=== PATIENT | female | born 1990 | race Two or more races ===

== ENCOUNTER 2016-11-02 21:43 | Emergency (ER) | payer MEDICAID, OTHER ==
[~2016-11-02] VITALS: Ht 170.2 cm; Wt 79.4 kg
[~2016-11-02 21:43] MED LIST: ACETAMINOP500 MG/51 ORAL; DIFLUCAN100 MG ORAL; MACROBID100 MG ORAL; NKM; ONDANSETRON ODT4 MG ORAL; PRENATAL DHA+C1 EACH PO; ZOFRAN ODT4 MG ORAL
[2016-11-02] MEDS ORDERED: UNOBMED (22:01)
[2016-11-02 22:04] VITALS: BP 96/53
[2016-11-02] MEDS: D5NS 1,000 ML IV SCH ×2 (22:17→23:18)
[2016-11-02 22:30] LABS: BASOPHILS % (AUTO) 0.7 % (0.0-2.0); EOSINOPHILS % (AUTO) 0.1 % (0.0-3.0); LYMPHOCYTES % (AUTO) 16.2 % (20.0-45.0); MEAN CORPUSCULAR HEMOGLOBIN 31.7 PG (27.0-31.0); MEAN CORPUSCULAR HGB CONC 35.2 G/DL (32.0-36.0); MEAN CORPUSCULAR VOLUME 90 FL (80-99); MEAN PLATELET VOLUME 10.3 FL (6.5-10.1); MONOCYTES % (AUTO) 5.7 % (1.0-10.0); NEUTROPHILS % (AUTO) 77.3 % (45.0-75.0); PLATELET COUNT 247 K/UL (150-450); RED BLOOD COUNT 4.22 M/UL (4.20-5.40); RED CELL DISTRIBUTION WIDTH 11.1 % (11.6-14.8); WHITE BLOOD COUNT 12.5 K/UL (4.8-10.8)
[2016-11-02 22:41] LABS: ANION GAP 15 (5-15); CALCIUM 9.9 mg/dL (8.6-10.2); CARBON DIOXIDE 24 mEQ/L (20-30); CHLORIDE 98 mEQ/L (98-107); CREATININE 0.6 mg/dL (0.5-0.9); GLOMERULAR FILTRATION RATE > 60 mL/min (>60); HEMOLYSIS 8; POTASSIUM 3.4 mEQ/L (3.4-4.9); SODIUM 137 mEQ/L (135-145)
[2016-11-02 23:00] VITALS: BP 117/70
[2016-11-02] MEDS ORDERED: D5NS 1,000 ML IV SCH (23:00)
[2016-11-03 00:08] LABS: APPEARANCE,URINE CLEAR; KETONES,URINE 4+ (NEGATIVE); LEUKOCYTE ESTERASE ,URINE NEGATIVE (NEGATIVE); NITRITE,URINE NEGATIVE (NEGATIVE); PH,URINE 7 (4.5-8.0); PROTEIN,URINE NEGATIVE (NEGATIVE); UROBILINOGEN,URINE 1 MG/DL (0.0-1.0)
[2016-11-03 00:09] LABS: BACTERIA,URINE FEW /HPF; RBC,URINE 0-2 /HPF (0 - 2); SQUAMOUS EPITHELIAL CELL,UR FEW /LPF (NONE/OCC); WBC,URINE 0-2 /HPF (0 - 2)
[2016-11-03] MEDS ORDERED: ZOFRAN ODT4 MG ORAL (00:10)
--- NOTE | 2016-11-03 00:11 | Emergency Room Report ---
History of Present Illness General Chief Complaint: Nausea Source: Patient Present Illness HPI A 26-year-old female 3 para 2, approximately 8 weeks . She's been having a lot of problem with vomiting and nauseous with this . This is similar to previous . Unable to keep anything down for the last 2 days. Been to ER before for this. Patient felt so pain also. No fever or chills. No bleeding. No urinary complaint. Allergies: Coded Allergies: No Known Allergies (Unverified , 11/02/16) Patient History Past Medical History: see triage record, old chart reviewed Past Surgical History: none Pertinent Family History: none Social History: Denies: smoking Last Menstrual Period: unk Now: Yes - 8 weeks : 3 Para: 2 Immunizations: other Reviewed Nursing Documentation: PMH: Agreed, PSxH: Agreed Nursing Documentation-PMH Past Medical History: No Stated History Hx Cardiac Problems: No Hx Cancer: No Hx Gastrointestinal Problems: No Hx Neurological Problems: No Review of Systems Eye: Denies: blurred vision, eye pain ENT: Denies: ear pain, nose congestion, throat swelling Respiratory: Denies: cough, shortness of breath Cardiovascular: Denies: chest pain, palpitations Gastrointestinal: Reports: nausea, vomiting, Denies: abdominal pain, diarrhea Musculoskeletal: Denies: back pain, joint pain Skin: Denies: rash Neurological: Denies: headache, numbness Endocrine: Denies: increased thirst, increased urine Hematologic/Lymphatic: Denies: easy bruising All Other Systems: negative except mentioned in HPI Physical Exam Vital Signs Date Time Temp Pulse Resp B/P Pulse Ox O2 Delivery O2 Flow Rate FiO2 11/02/16 21:56 97.9 80 16 96/53 99 Room Air vitals unremarkable Sp02 EP Interpretation: reviewed, normal General Appearance: well appearing, no apparent distress, alert Head: normocephalic, atraumatic Eyes: bilateral eye EOMI, bilateral eye PERRL ENT: hearing grossly normal, normal pharynx Neck: full range of motion, supple, no meningismus Respiratory: chest non-tender, lungs clear, normal breath sounds Cardiovascular #1: regular rate, rhythm, no murmur Gastrointestinal: normal bowel sounds, non tender, no mass, no organomegaly, no bruit, non-distended Musculoskeletal: back normal, gait/station normal, normal range of motion Psychiatric: mood/affect normal Skin: warm/dry Medical Decision Making Diagnostic Impression: Primary Impression: Hyperemesis gravidarum Additional Impression: dehydration ER Course Patient with hyperemesis gravidarum during first trimester. No evidence of infection. No evidence of ectopic. I did a bedside ultrasound and there was good movement and heart rate. We'll discharge home with Zofran. Lab Results Impression labs unremarkable Last Vital Signs Date Time Temp Pulse Resp B/P Pulse Ox O2 Delivery O2 Flow Rate FiO2 11/02/16 23:00 76 20 117/70 100 Room Air 11/02/16 22:04 97.9 Status: improved Disposition: HOME, SELF-CARE Condition: Stable Scripts Ondansetron Odt* (ZOFRAN ODT*) 4 Mg Tab.rapdis 4 MG ORAL Q6H Y for Nausea & Vomiting, #30 TAB 0 Refills Prov: MELANIE WESLEY M.D. 11/03/16 Referrals: [facility],REFERRING (PCP) Additional Instructions: Eat small frequent meals. Followup with your DIRECTOR OF EVENT MARKETING in 2-3 days. Return if symptom worsen. MELANIE WESLEY M.D. Nov 03, 2016 00:11
[2016-11-03] MEDS ORDERED: Acetaminophen 500mg (ES) tab ORAL ONE (00:15)
[2016-11-03 01:00] VITALS: BP 115/68
[2016-11-03 01:55] VITALS: BP 113/65
[2016-11-09] MEDS ORDERED: DICLEGIS DR 101 EACH PO (22:13)
== END 2016-11-03 01:55 | disposition home or self-care (01) ==
LOC: EMR 22:12
DX: O21.1 Hyperemesis gravidarum with metabolic disturbance (principal); Z3A.08 8 weeks gestation of pregnancy
CPT/HCPCS: 36415; 80048; 81001; 85025; 96360; 96361; 96374; 96375; 99284; J2405; 96365

== ENCOUNTER 2016-11-14 18:54 | Emergency (ER) | payer MEDICAID, OTHER ==
[~2016-11-14] VITALS: Ht 170.2 cm; Wt 77.1 kg
[~2016-11-14 18:54] MED LIST changes: +DICLEGIS DR 101 EACH PO; +UNOBMED
[2016-11-14] MEDS ORDERED: Tubing IV Cassette IV ONE ×2 (19:46→21:04)
[2016-11-14 20:01] LABS: BASOPHILS % (AUTO) 0.8 % (0.0-2.0); EOSINOPHILS % (AUTO) 0.2 % (0.0-3.0); LYMPHOCYTES % (AUTO) 21.6 % (20.0-45.0); MEAN CORPUSCULAR HEMOGLOBIN 32.3 PG (27.0-31.0); MEAN CORPUSCULAR VOLUME 90 FL (80-99); MEAN PLATELET VOLUME 10.7 FL (6.5-10.1); MONOCYTES % (AUTO) 7.9 % (1.0-10.0); NEUTROPHILS % (AUTO) 69.5 % (45.0-75.0); PLATELET COUNT 212 K/UL (150-450); RED BLOOD COUNT 4.24 M/UL (4.20-5.40); RED CELL DISTRIBUTION WIDTH 11.9 % (11.6-14.8); WHITE BLOOD COUNT 8.5 K/UL (4.8-10.8)
[2016-11-14 20:25] VITALS: BP 102/54
[2016-11-14 20:32] LABS: ALANINE AMINOTRANSFERASE 20 U/L (3-33); ALBUMIN/GLOBULIN RATIO 1.2 (1.0-2.7); ANION GAP 16 (5-15); ASPARTATE AMINO TRANSFERASE 24 U/L (5-40); CALCIUM 9.7 mg/dL (8.6-10.2); CARBON DIOXIDE 22 mEQ/L (20-30); CHLORIDE 96 mEQ/L (98-107); CREATININE 0.6 mg/dL (0.5-0.9); GLOMERULAR FILTRATION RATE > 60 mL/min (>60); HEMOLYSIS 119; LIPASE 36 U/L (< 60); POTASSIUM 4.3 mEQ/L (3.4-4.9); SODIUM 134 mEQ/L (135-145); TOTAL PROTEIN 7.8 g/dL (6.6-8.7)
[2016-11-14 21:56] VITALS: BP 117/51
[2016-11-14] MEDS ORDERED: ZOFRAN ODT4 MG ORAL (22:03)
[2016-11-14 22:14] VITALS: BP 117/51
--- NOTE | 2016-11-14 22:16 | Emergency Room Report ---
History of Present Illness General Chief Complaint: Complications Source: Patient Present Illness HPI 26-year-old female presents to ED for evaluation. Patient states shes having nausea and vomiting x1 days. Patient states she is approximately 9 weeks . States she was here a few days ago for similar presentation. Was discharged on medication for nausea but she states it is not helping. Denies any abdominal pain. Denies any vaginal bleeding or discharge. Denies dysuria or hematuria. No other aggravating relieving factors. Denies any other associated symptoms Allergies: Coded Allergies: No Known Allergies (Unverified , 11/09/16) Patient History Past Medical History: none Past Surgical History: none Pertinent Family History: none Social History: Denies: alcohol use, drug use, smoking Last Menstrual Period: 9 weeks Now: Yes Immunizations: UTD Reviewed Nursing Documentation: PMH: Agreed, PSxH: Agreed Nursing Documentation-PMH Past Medical History: No Stated History Hx Cardiac Problems: No Hx Cancer: No Hx Gastrointestinal Problems: No Hx Neurological Problems: No Review of Systems All Other Systems: negative except mentioned in HPI Physical Exam Vital Signs Date Time Temp Pulse Resp B/P Pulse Ox O2 Delivery O2 Flow Rate FiO2 11/14/16 19:24 97.9 111 17 88/51 98 Room Air Sp02 EP Interpretation: reviewed, normal General Appearance: no apparent distress, alert, GCS 15, non-toxic Head: normocephalic, atraumatic Eyes: bilateral eye PERRL, bilateral eye normal inspection ENT: hearing grossly normal, normal pharynx, no angioedema, normal voice Neck: full range of motion, supple/symm/no masses Respiratory: chest non-tender, lungs clear, normal breath sounds, speaking full sentences Cardiovascular #1: regular rate, rhythm, no edema Cardiovascular #2: 2+ carotid (R), 2+ carotid (L), 2+ radial (R), 2+ radial (L) , 2+ dorsalis pedis (R), 2+ dorsalis pedis (L) Gastrointestinal: normal bowel sounds, non tender, soft, non-distended, no guarding, no rebound Rectal: deferred Genitourinary: normal inspection, no CVA tenderness Musculoskeletal: back normal, gait/station normal, normal range of motion, non- tender Neurologic: alert, oriented x3, responsive, motor strength/tone normal, sensory intact, speech normal Psychiatric: judgement/insight normal, memory normal, mood/affect normal, no suicidal/homicidal ideation Reflexes: 3+ bicep (R), 3+ bicep (L), 3+ tricep (R), 3+ tricep (L), 3+ knee (R) , 3+ knee (L) Skin: normal color, no rash, warm/dry, well hydrated Lymphatic: no adenopathy Medical Decision Making Diagnostic Impression: Primary Impression: Vomiting affecting ER Course Hospital Course 26-year-old F presents to ED with N/V. 9 weeks differential diagnosis: gastritis, dehydration, hyperemesis gravdium Clinical course Patient placed on stretcher. On monitoring coordinator. After initial history and physical I ordered labs, IV fluids, Zofran Labs - no leukocytosis, no electrolyte abnormalities, LFTs normal She is not having abdominal pain. Ultrasound done last visit shows IUP with normal heart rate. I see no reason to repeat this and at this time Upon reassessment, patient states symptoms have improved. Patient was prescribed pyridoxine without improvement. we will prescribe zofran I feel this is a highly complex case requiring extensive working including EKG/ Rhythm strip, Xray/CT/US, Blood/urine lab work, repeat exams while in ED, and administration of strong opiates/narcotics for pain control, admission to hospital or close patient follow up. Diagnosis - vomiting affecting Stable and discharged to home with prescriptions for Zofran. Followup with OB/ ELECTRICAL CONTRACTOR. Return to ED if symptoms recur or worsen Labs Test 11/14/16 19:40 White Blood Count 8.5 K/UL (4.8-10.8) Red Blood Count 4.24 M/UL (4.20-5.40) Hemoglobin 13.7 G/DL (12.0-16.0) Hematocrit 38.1 % (37.0-47.0) Mean Corpuscular Volume 90 FL (80-99) Mean Corpuscular Hemoglobin 32.3 PG (27.0-31.0) Mean Corpuscular Hemoglobin Concent 36.0 G/DL (32.0-36.0) Red Cell Distribution Width 11.9 % (11.6-14.8) Platelet Count 212 K/UL (150-450) Mean Platelet Volume 10.7 FL (6.5-10.1) Neutrophils (%) (Auto) 69.5 % (45.0-75.0) Lymphocytes (%) (Auto) 21.6 % (20.0-45.0) Monocytes (%) (Auto) 7.9 % (1.0-10.0) Eosinophils (%) (Auto) 0.2 % (0.0-3.0) Basophils (%) (Auto) 0.8 % (0.0-2.0) Sodium Level 134 mEQ/L (135-145) Potassium Level 4.3 mEQ/L (3.4-4.9) Chloride Level 96 mEQ/L (98-107) Carbon Dioxide Level 22 mEQ/L (20-30) Anion Gap 16 (5-15) Blood Urea Nitrogen 8 mg/dL (7-23) Creatinine 0.6 mg/dL (0.5-0.9) Estimat Glomerular Filtration Rate > 60 mL/min (>60) Glucose Level 99 mg/dL (74-106) Calcium Level 9.7 mg/dL (8.6-10.2) Total Bilirubin 0.5 mg/dL (0.0-1.2) Aspartate Amino Transf (AST/SGOT) 24 U/L (5-40) Alanine Aminotransferase (ALT/SGPT) 20 U/L (3-33) Alkaline Phosphatase 44 U/L (35-104) Total Protein 7.8 g/dL (6.6-8.7) Albumin 4.3 g/dL (3.5-5.2) Globulin 3.5 g/dL Albumin/Globulin Ratio 1.2 (1.0-2.7) Lipase 36 U/L (< 60) Human Chorionic Gonadotropin, Quant [id number] mIU/mL Last Vital Signs Date Time Temp Pulse Resp B/P Pulse Ox O2 Delivery O2 Flow Rate FiO2 11/14/16 21:56 78 24 117/51 100 Room Air 11/14/16 20:25 98.7 Status: improved Disposition: HOME, SELF-CARE Condition: Stable Scripts Ondansetron Odt* (ZOFRAN ODT*) 4 Mg Tab.rapdis 4 MG ORAL Q6H Y for Nausea & Vomiting, #30 TAB 0 Refills Prov: PRIYANK APPIAH M.D. 11/14/16 Patient Instructions: Hyperemesis Gravidarum PRIYANK APPIAH M.D. Nov 14, 2016 22:15
== END 2016-11-14 22:19 | disposition home or self-care (01) ==
LOC: EMR 19:48
DX: O21.9 Vomiting of pregnancy, unspecified (principal); Z3A.09 9 weeks gestation of pregnancy
CPT/HCPCS: 36415; 80053; 83690; 84702; 85025; 96361; 96374; 96375; 99284; J2405; 96360

== ENCOUNTER 2016-11-19 16:57 | Emergency (ER) | payer MEDICAID, OTHER ==
[~2016-11-19] VITALS: Ht 170.2 cm; Wt 77.1 kg
[2016-11-19 17:18] VITALS: BP 102/88
[2016-11-19 18:31] LABS: BASOPHILS % (AUTO) 0.6 % (0.0-2.0); EOSINOPHILS % (AUTO) 0.2 % (0.0-3.0); LYMPHOCYTES % (AUTO) 22.8 % (20.0-45.0); MEAN CORPUSCULAR HEMOGLOBIN 32.4 PG (27.0-31.0); MEAN CORPUSCULAR VOLUME 88 FL (80-99); NEUTROPHILS % (AUTO) 69.4 % (45.0-75.0); PLATELET COUNT 203 K/UL (150-450); RED BLOOD COUNT 4.06 M/UL (4.20-5.40); RED CELL DISTRIBUTION WIDTH 11.4 % (11.6-14.8); WHITE BLOOD COUNT 7.9 K/UL (4.8-10.8)
[2016-11-19 18:42] LABS: ALANINE AMINOTRANSFERASE 18 U/L (3-33); ALBUMIN/GLOBULIN RATIO 1.3 (1.0-2.7); ANION GAP 14 (5-15); ASPARTATE AMINO TRANSFERASE 17 U/L (5-40); CALCIUM 9.9 mg/dL (8.6-10.2); CARBON DIOXIDE 25 mEQ/L (20-30); CHLORIDE 96 mEQ/L (98-107); CREATININE 0.7 mg/dL (0.5-0.9); GLOMERULAR FILTRATION RATE > 60 mL/min (>60); HEMOLYSIS 2; POTASSIUM 3.2 mEQ/L (3.4-4.9); SODIUM 135 mEQ/L (135-145); TOTAL PROTEIN 7.4 g/dL (6.6-8.7)
[2016-11-19] MEDS ORDERED: Acetaminophen 500mg (ES) tab ORAL ONE (19:00)
[2016-11-19] MEDS ORDERED: Famotidine 20 MG/ 2ML VIAL IVP ONE (19:00)
[2016-11-19] MEDS ORDERED: PEPCID20 MG ORAL (19:51)
[2016-11-19] MEDS ORDERED: ZOFRAN4 M3 ORAL (19:51)
[2016-11-19 19:54] VITALS: BP 115/88
[2016-11-19 19:58] VITALS: BP 115/88
--- NOTE | 2016-11-19 21:16 | Emergency Room Report ---
History of Present Illness General Chief Complaint: General Complaint Source: Patient, Medical Record Present Illness HPI The patient is a 26 old female at 10 weeks gestation presenting for nausea , vomiting, and abdominal pain. She states that she had hyperemesis gravidarum with her first and this feels the same. Nausea and vomiting has continued for the past week. She states that she vomits multiple times a day after ingesting solids. Abdominal pain is an 8/10 dull ache to the mid-upper abdomen and does not radiate. Worse with vomiting. She also feels weak. She has not been able to see PACKAGE CAR DRIVER do to insurance change. She denies other symptoms including fever, chills, numbness or tingling, dizziness, blurred vision, headache, dysuria, vaginal bleeding, abdominal cramping Allergies: Coded Allergies: No Known Allergies (Unverified , 11/09/16) Patient History Past Medical History: see triage record Pertinent Family History: none Last Menstrual Period: 10 weeks Now: Yes : 2 Para: 1 Reviewed Nursing Documentation: PMH: Agreed, PSxH: Agreed Nursing Documentation-PMH Past Medical History: No History, Except For Hx Cardiac Problems: No Hx Cancer: No Hx Gastrointestinal Problems: No Hx Neurological Problems: No Review of Systems All Other Systems: negative except mentioned in HPI Physical Exam Vital Signs Date Time Temp Pulse Resp B/P Pulse Ox O2 Delivery O2 Flow Rate FiO2 11/19/16 17:18 97.2 73 16 102/88 98 Room Air Sp02 EP Interpretation: reviewed, normal General Appearance: no apparent distress, alert, GCS 15, non-toxic Head: normocephalic, atraumatic Eyes: bilateral eye PERRL, bilateral eye normal inspection ENT: hearing grossly normal, normal pharynx, no angioedema, normal voice Neck: full range of motion, supple/symm/no masses Respiratory: chest non-tender, lungs clear, normal breath sounds, speaking full sentences Gastrointestinal: soft, no mass, non-distended, no guarding, tenderness - epigastric Rectal: deferred Genitourinary: normal inspection, no CVA tenderness Musculoskeletal: back normal, gait/station normal, normal range of motion, non- tender Neurologic: alert, oriented x3, responsive, motor strength/tone normal, sensory intact, speech normal Psychiatric: judgement/insight normal, memory normal, mood/affect normal, no suicidal/homicidal ideation Skin: normal color, no rash, warm/dry, well hydrated Lymphatic: no adenopathy Medical Decision Making PA Attestation Dr. Valadez is my supervising physician. Patient management was discussed with my supervising physician Diagnostic Impression: Primary Impression: Hyperemesis gravidarum ER Course The patient is a 26 old female at 10 weeks gestation presenting for nausea and vomiting DDx considered but not limited to: hyperemesis gravidarum, ectopic , UTI, 1st trimester , among others PE: vitals WNl. NAD Abd is soft. Non distended. TTP over epigastric region only. Skin is warm and dry. No pallor. Normal turgor Lab work unremarkable The patient is given IV fluids, Pepcid, and Zofran and is feeling significantly better. She'll be discharged home and is to followup with OB. Prescription for zofran given Laboratory Tests Test 11/19/16 17:54 White Blood Count 7.9 K/UL (4.8-10.8) Red Blood Count 4.06 M/UL (4.20-5.40) L Hemoglobin 13.2 G/DL (12.0-16.0) Hematocrit 35.6 % (37.0-47.0) L Mean Corpuscular Volume 88 FL (80-99) Mean Corpuscular Hemoglobin 32.4 PG (27.0-31.0) H Mean Corpuscular Hemoglobin Concent 37.0 G/DL (32.0-36.0) H Red Cell Distribution Width 11.4 % (11.6-14.8) L Platelet Count 203 K/UL (150-450) Mean Platelet Volume 10.0 FL (6.5-10.1) Neutrophils (%) (Auto) 69.4 % (45.0-75.0) Lymphocytes (%) (Auto) 22.8 % (20.0-45.0) Monocytes (%) (Auto) 7.0 % (1.0-10.0) Eosinophils (%) (Auto) 0.2 % (0.0-3.0) Basophils (%) (Auto) 0.6 % (0.0-2.0) Sodium Level 135 mEQ/L (135-145) Potassium Level 3.2 mEQ/L (3.4-4.9) L Chloride Level 96 mEQ/L (98-107) L Carbon Dioxide Level 25 mEQ/L (20-30) Anion Gap 14 (5-15) Blood Urea Nitrogen 6 mg/dL (7-23) L Creatinine 0.7 mg/dL (0.5-0.9) Estimate Glomerular Filtration Rate > 60 mL/min (>60) Glucose Level 105 mg/dL (74-106) Calcium Level 9.9 mg/dL (8.6-10.2) Total Bilirubin 0.4 mg/dL (0.0-1.2) Aspartate Amino Transferase (AST) 17 U/L (5-40) Alanine Aminotransferase (ALT) 18 U/L (3-33) Alkaline Phosphatase 48 U/L (35-104) Total Protein 7.4 g/dL (6.6-8.7) Albumin 4.3 g/dL (3.5-5.2) Globulin 3.1 g/dL Albumin/Globulin Ratio 1.3 (1.0-2.7) Human Chorionic Gonadotropin, Quant [id number] mIU/mL Lab Results Impression CBC unremarkable. CMP shows mild hypokalemia and hypochloridemia. UA: pt refused. Unable to urinate and declined catheter. Beta quant appropriate for gestational age. Last Vital Signs Date Time Temp Pulse Resp B/P Pulse Ox O2 Delivery O2 Flow Rate FiO2 11/19/16 19:58 97.2 73 16 115/88 98 Room Air Status: improved Disposition: HOME, SELF-CARE Condition: Improved Scripts Famotidine (PEPCID) 20 Mg Tablet 20 MG ORAL DAILY, #7 TAB 0 Refills Prov: CARMENCITA HUBER P.A. 11/19/16 Ondansetron* (ZOFRAN*) 4 Mg Tablet 4 MG ORAL Q6H Y for Nausea & Vomiting, #30 TAB Prov: DAWNAANCARMENCITA P.A. 11/19/16 Patient Instructions: Hyperemesis Gravidarum Additional Instructions: I discussed my findings with the patient. All questions and concerns have been answered. Treatment and medication compliance have been addressed. I advised the patient that they need to follow up with primary doctor and PACKAGE CAR DRIVER as soon as possible. Return to ED if symptoms worsen, new symptoms arise, or if needed for any reason. Patient verbalized understanding of discharge instructions. Please return to emergency Department if you're unable to keep any fluids or foods down. Also return if nausea and/or vomiting worsens or does not improve. CARMENCITA HUBER Nov 19, 2016 21:15
== END 2016-11-19 20:03 | disposition home or self-care (01) ==
LOC: EMR 18:30
DX: O21.0 Mild hyperemesis gravidarum (principal); Z3A.10 10 weeks gestation of pregnancy; E87.6 Hypokalemia; E87.8 Other disorders of electrolyte and fluid balance, not elsewhere classified
CPT/HCPCS: 36415; 80053; 84702; 85025; 96374; 96375; 99284; J2405; S0028

== ENCOUNTER 2016-11-22 20:23 | Emergency (ER) | payer MEDICAID, OTHER ==
[~2016-11-22] VITALS: Ht 170.2 cm; Wt 77.1 kg
[~2016-11-22 20:23] MED LIST changes: +PEPCID20 MG ORAL; +ZOFRAN4 M3 ORAL
[2016-11-22 20:42] VITALS: BP 112/70
[2016-11-22 21:57] LABS: BASOPHILS % (AUTO) 0.6 % (0.0-2.0); EOSINOPHILS % (AUTO) 0.4 % (0.0-3.0); LYMPHOCYTES % (AUTO) 24.2 % (20.0-45.0); MEAN CORPUSCULAR HEMOGLOBIN 32.7 PG (27.0-31.0); MEAN CORPUSCULAR HGB CONC 36.2 G/DL (32.0-36.0); MEAN CORPUSCULAR VOLUME 90 FL (80-99); MEAN PLATELET VOLUME 10.4 FL (6.5-10.1); MONOCYTES % (AUTO) 6.6 % (1.0-10.0); NEUTROPHILS % (AUTO) 68.2 % (45.0-75.0); PLATELET COUNT 172 K/UL (150-450); RED BLOOD COUNT 3.76 M/UL (4.20-5.40); RED CELL DISTRIBUTION WIDTH 11.5 % (11.6-14.8); WHITE BLOOD COUNT 6.5 K/UL (4.8-10.8)
[2016-11-22 22:13] LABS: ALANINE AMINOTRANSFERASE 17 U/L (3-33); ALBUMIN/GLOBULIN RATIO 1.2 (1.0-2.7); ANION GAP 14 (5-15); ASPARTATE AMINO TRANSFERASE 17 U/L (5-40); CALCIUM 9.4 mg/dL (8.6-10.2); CARBON DIOXIDE 23 mEQ/L (20-30); CHLORIDE 99 mEQ/L (98-107); CREATININE 0.5 mg/dL (0.5-0.9); GLOMERULAR FILTRATION RATE > 60 mL/min (>60); HEMOLYSIS 25; LIPASE 24 U/L (< 60); POTASSIUM 3.8 mEQ/L (3.4-4.9); SODIUM 136 mEQ/L (135-145); TOTAL PROTEIN 6.9 g/dL (6.6-8.7)
[2016-11-22 23:05] VITALS: BP 118/69
--- NOTE | 2016-11-23 00:38 | Emergency Room Report ---
History of Present Illness General Chief Complaint: Complications Source: Patient Present Illness HPI 26-year-old female presents to ED for evaluation. States the last few days she' s been having persistent vomiting. States she is approximately 11 weeks . Having multiple episodes of vomiting. Denies any diarrhea. Notes some abdominal pain, sharp, 8/10, nonradiating. Denies fevers or chills. Denies chest pain or shortness of breath. No other aggravating relieving factors. Denies any other associated symptoms Allergies: Coded Allergies: No Known Allergies (Unverified , 11/09/16) Patient History Past Medical History: none Past Surgical History: none Pertinent Family History: none Social History: Denies: alcohol use, drug use, smoking Last Menstrual Period: SEPTEMBER 07 Now: Yes - 11 WEEKS : 3 Para: 1 Immunizations: UTD Reviewed Nursing Documentation: PMH: Agreed, PSxH: Agreed Nursing Documentation-PM Past Medical History: No Stated History Hx Cardiac Problems: No Hx Cancer: No Hx Gastrointestinal Problems: No Hx Neurological Problems: No Review of Systems All Other Systems: negative except mentioned in HPI Physical Exam Vital Signs Date Time Temp Pulse Resp B/P Pulse Ox O2 Delivery O2 Flow Rate FiO2 11/22/16 20:33 97.3 71 18 108/69 98 Room Air Sp02 EP Interpretation: reviewed, normal General Appearance: no apparent distress, alert, GCS 15, non-toxic Head: normocephalic, atraumatic Eyes: bilateral eye PERRL, bilateral eye normal inspection ENT: hearing grossly normal, normal pharynx, no angioedema, normal voice Neck: full range of motion, supple/symm/no masses Respiratory: chest non-tender, lungs clear, normal breath sounds, speaking full sentences Cardiovascular #1: regular rate, rhythm, no edema Cardiovascular #2: 2+ carotid (R), 2+ carotid (L), 2+ radial (R), 2+ radial (L) , 2+ dorsalis pedis (R), 2+ dorsalis pedis (L) Gastrointestinal: normal bowel sounds, non tender, soft, non-distended, no guarding, no rebound Rectal: deferred Genitourinary: normal inspection, no CVA tenderness Musculoskeletal: back normal, gait/station normal, normal range of motion, non- tender Neurologic: alert, oriented x3, responsive, motor strength/tone normal, sensory intact, speech normal Psychiatric: judgement/insight normal, memory normal, mood/affect normal, no suicidal/homicidal ideation Reflexes: 3+ bicep (R), 3+ bicep (L), 3+ tricep (R), 3+ tricep (L), 3+ knee (R) , 3+ knee (L) Skin: normal color, no rash, warm/dry, well hydrated Lymphatic: no adenopathy Medical Decision Making Diagnostic Impression: Primary Impression: Hyperemesis gravidarum ER Course Hospital Course 26-year-old female presents to ED complaining of lower abdominal pain with N/V. + Differential diagnoses include: gastrits, gastroenterits, ectopic , ovarian torsion/cyst, UTI Clinical course Patient placed on stretcher in ED. After initial history and physical I ordered labs, IV fluids and Zofran and OB Ultrasound Labs-no leukocytosis, electrolytes okay, beta hCG greater than 90,000 OB ultrasound-IUP detected with heart rate Upon reassessment patient states she feels better wishes to go home. She has been there a few times recently for hyperemesis gravidarum and vomiting. Patient is in her first trimester. patient has tried piroxidine and Zofran. states that Zofran works better Diagnosis - hyperemesis gravidum Stable and discharged to home with Rx zofran. Followup with PMD/IT DESKTOP SUPPORT TECHNICIAN. Return to ED if symptoms recur or worsen Labs Test 11/22/16 21:20 White Blood Count 6.5 K/UL (4.8-10.8) Red Blood Count 3.76 M/UL (4.20-5.40) Hemoglobin 12.3 G/DL (12.0-16.0) Hematocrit 34.0 % (37.0-47.0) Mean Corpuscular Volume 90 FL (80-99) Mean Corpuscular Hemoglobin 32.7 PG (27.0-31.0) Mean Corpuscular Hemoglobin Concent 36.2 G/DL (32.0-36.0) Red Cell Distribution Width 11.5 % (11.6-14.8) Platelet Count 172 K/UL (150-450) Mean Platelet Volume 10.4 FL (6.5-10.1) Neutrophils (%) (Auto) 68.2 % (45.0-75.0) Lymphocytes (%) (Auto) 24.2 % (20.0-45.0) Monocytes (%) (Auto) 6.6 % (1.0-10.0) Eosinophils (%) (Auto) 0.4 % (0.0-3.0) Basophils (%) (Auto) 0.6 % (0.0-2.0) Sodium Level 136 mEQ/L (135-145) Potassium Level 3.8 mEQ/L (3.4-4.9) Chloride Level 99 mEQ/L (98-107) Carbon Dioxide Level 23 mEQ/L (20-30) Anion Gap 14 (5-15) Blood Urea Nitrogen 4 mg/dL (7-23) Creatinine 0.5 mg/dL (0.5-0.9) Estimat Glomerular Filtration Rate > 60 mL/min (>60) Glucose Level 98 mg/dL (74-106) Calcium Level 9.4 mg/dL (8.6-10.2) Total Bilirubin 0.3 mg/dL (0.0-1.2) Aspartate Amino Transf (AST/SGOT) 17 U/L (5-40) Alanine Aminotransferase (ALT/SGPT) 17 U/L (3-33) Alkaline Phosphatase 45 U/L (35-104) Total Protein 6.9 g/dL (6.6-8.7) Albumin 3.8 g/dL (3.5-5.2) Globulin 3.1 g/dL Albumin/Globulin Ratio 1.2 (1.0-2.7) Lipase 24 U/L (< 60) Human Chorionic Gonadotropin, Quant [id number] mIU/mL CT/MRI/US Diagnostic Results CT/MRI/US Diagnostic Results : Imaging Test Ordered: OB US Impression IUP approximately 11 weeks. +FHR Last Vital Signs Date Time Temp Pulse Resp B/P Pulse Ox O2 Delivery O2 Flow Rate FiO2 11/22/16 20:33 97.3 71 18 108/69 98 Room Air Status: improved Disposition: HOME, SELF-CARE Condition: Stable Scripts Ondansetron Odt* (ZOFRAN ODT*) 4 Mg Tab.rapdis 4 MG ORAL Q6H Y for Nausea & Vomiting, #30 TAB 0 Refills Prov: PRIYANK APPIAH M.D. 11/23/16 Referrals: [facility],REFERRING (PCP) PRIYANK APPIAH M.D. Nov 23, 2016 00:38
[2016-11-23] MEDS ORDERED: ZOFRAN ODT4 MG ORAL (01:00)
[2016-11-23 01:15] VITALS: BP 120/72
[2016-11-23 01:20] VITALS: BP 120/72
--- NOTE | 2016-11-23 12:10 | Diagnostic Imaging Report ---
Indication: Positive test, abdominal pain, vomiting Technique: Transabdominal images of the uterus and pelvic structures only. Endovaginal imaging not performed, per patient request Comparison: 05/31/2013 Findings: Uterus measures 10.9 cm length by 7.4 cm AP. Within the endometrium, there is gestational sac. This contains a pole which demonstrates a crown-rump length of 4.5 cm, corresponding to estimated gestational age 11 weeks 3 days. There is positive heart activity, heart rate a 60 beats for minute. No subchorionic hemorrhage demonstrated. The sac is demonstrated. There is a 3.2 cm anterior fundal subserosal fibroid demonstrated. The left ovary measures 3.2 cm in length. The right ovary measures 2.7 cm in length. Incidentally noted is what appears to be debris within the bladder Impression: Limited exam, due to lack of endovaginal imaging 11 week 3 day estimated gestational age single live intrauterine . No definite unusual features Probable anterior fundal subserosal fibroid
== END 2016-11-23 01:20 | disposition home or self-care (01) ==
LOC: EMR 21:06
DX: O21.0 Mild hyperemesis gravidarum (principal); Z3A.11 11 weeks gestation of pregnancy
CPT/HCPCS: 36415; 76801; 76830; 80053; 83690; 84702; 85025; 96360; 96375; 99284; J2405

== ENCOUNTER 2016-11-25 14:30 | Emergency (ER) | payer OTHER ==
[~2016-11-25] VITALS: Ht 170.2 cm; Wt 77.1 kg
[2016-11-25] MEDS ORDERED: Metoclopramide 10mg/2ml Inj IM ONE (15:00)
[2016-11-25] MEDS ORDERED: REGLAN10 MG ORAL (16:32)
[2016-11-25 16:42] VITALS: BP 119/61
--- NOTE | 2016-11-25 22:16 | Emergency Room Report ---
History of Present Illness General Chief Complaint: Complications Source: Patient Present Illness HPI Patient is a 26 old female at 11 weeks gestation presenting for continued nausea and vomiting. She has been seen in this emergency department multiple times recently for the same complaint and diagnosed with hyperemesis gravidarum. She has not been able to follow up with her OB. She was given prescriptions for Zofran which did initially help. She states that she's been unable to keep any food or liquids down since yesterday due to to the nausea and vomiting. Pain is an 8/10 dull ache to the mid upper abdomen and does not radiate. Worse with retching. She states that she has had hyperemesis gravidarum with her past . She denies other symptoms including vaginal bleeding, abdominal cramping, dysuria, fever, chills, dizziness Allergies: Coded Allergies: No Known Allergies (Unverified , 11/09/16) Patient History Past Medical History: see triage record Pertinent Family History: none Now: Yes Reviewed Nursing Documentation: PMH: Agreed, PSxH: Agreed Nursing Documentation-PMH Past Medical History: No Stated History Hx Cardiac Problems: No Hx Cancer: No Hx Gastrointestinal Problems: No Hx Neurological Problems: No Review of Systems All Other Systems: negative except mentioned in HPI Physical Exam Vital Signs Date Time Temp Pulse Resp B/P Pulse Ox O2 Delivery O2 Flow Rate FiO2 11/25/16 14:39 98.6 102 20 110/78 99 Room Air Sp02 EP Interpretation: reviewed, normal General Appearance: no apparent distress, alert, GCS 15, non-toxic Head: normocephalic, atraumatic Eyes: bilateral eye PERRL, bilateral eye normal inspection ENT: normal ENT inspection Neck: full range of motion, supple/symm/no masses Respiratory: chest non-tender, lungs clear, normal breath sounds, speaking full sentences Cardiovascular #1: regular rate, rhythm, no edema Gastrointestinal: normal bowel sounds, soft, non-distended, no guarding, no rebound, tenderness - epigastric Genitourinary: normal inspection, no CVA tenderness Musculoskeletal: back normal, gait/station normal, normal range of motion, non- tender Neurologic: alert, oriented x3, responsive, motor strength/tone normal, sensory intact, speech normal Psychiatric: judgement/insight normal, memory normal, mood/affect normal, no suicidal/homicidal ideation Skin: normal color, no rash, warm/dry, well hydrated Medical Decision Making PA Attestation Dr. Munoz is my supervising physician. Patient management was discussed with my supervising physician Diagnostic Impression: Primary Impression: Hyperemesis gravidarum ER Course The patient is a 26 old female presenting for continued hyperemesis gravidarum Differential diagnoses considered but not limited to: Hyperemesis gravidarum, dehydration, ectopic , among others Physical exam: Vitals are within normal limits. No apparent distress Skin is warm and dry. Normal turgor Abdomen is soft. Tenderness to palpation over epigastric region only The patient has had multiple workups recently with no signs of demise or significant electrolyte abnormalities. She is given IM Reglan and by mouth Tylenol and states that symptoms have significantly decreased. She states that she is feeling better. She is able to keep down fluids and is observed in the ER. She will be discharged home with a prescription for Reglan and needs to followup with her OB as soon as possible. ER precautions are given Last Vital Signs Date Time Temp Pulse Resp B/P Pulse Ox O2 Delivery O2 Flow Rate FiO2 11/25/16 16:42 83 20 119/61 98 Room Air 11/25/16 14:39 98.6 Status: improved Disposition: HOME, SELF-CARE Condition: Improved Scripts Metoclopramide Hcl* (REGLAN*) 10 Mg Tablet 10 MG ORAL THREE TIMES A DAY, #30 TAB Prov: CARMENCITA HUBER 11/25/16 Referrals: [facility] (PCP) Patient Instructions: Eating Plan for Hyperemesis Gravidarum, Labor Information, Hyperemesis Gravidarum Additional Instructions: I discussed my findings with the patient. All questions and concerns have been answered. Treatment and medication compliance have been addressed. I advised the patient that they need to follow up with their OB doctor as soon as possible. Return to ED if symptoms worsen, new symptoms arise, or if needed for any reason. Patient verbalized understanding of discharge instructions. CARMENCITA HUBER Nov 25, 2016 22:16
== END 2016-11-25 17:14 | disposition home or self-care (01) ==
LOC: EMR 14:55
DX: O21.0 Mild hyperemesis gravidarum (principal); Z3A.11 11 weeks gestation of pregnancy
CPT/HCPCS: 96372; 99284; J2765

== ENCOUNTER 2016-12-05 03:33 | Emergency (ER) | payer OTHER ==
[~2016-12-05] VITALS: Ht 172.7 cm; Wt 72.6 kg
[2016-12-05] VITALS (7 sets, daily range): BP systolic 101–124; BP diastolic 49–68
[~2016-12-05 03:33] MED LIST changes: +REGLAN10 MG ORAL
[2016-12-05] MEDS ORDERED: Metoclopramide 10mg/2ml Inj IVP ONE (03:45)
[2016-12-05] MEDS ORDERED: Famotidine 20 MG/ 2ML VIAL IVP ONE (04:15)
[2016-12-05 04:41] LABS: BASOPHILS % (AUTO) 0.4 % (0.0-2.0); EOSINOPHILS % (AUTO) 0.2 % (0.0-3.0); LYMPHOCYTES % (AUTO) 14.4 % (20.0-45.0); MEAN CORPUSCULAR HEMOGLOBIN 31.3 PG (27.0-31.0); MEAN CORPUSCULAR VOLUME 89 FL (80-99); MEAN PLATELET VOLUME 9.7 FL (6.5-10.1); MONOCYTES % (AUTO) 5.7 % (1.0-10.0); NEUTROPHILS % (AUTO) 79.3 % (45.0-75.0); PLATELET COUNT 247 K/UL (150-450); RED CELL DISTRIBUTION WIDTH 11.2 % (11.6-14.8); WHITE BLOOD COUNT 9.5 K/UL (4.8-10.8)
[2016-12-05 04:55] LABS: INR 1.2 (0.9-1.1); PROTHROMBIN TIME 11.8 SEC (9.30-11.50)
[2016-12-05 05:04] LABS: TROPONIN I < 0.30 ng/mL (<=0.30)
[2016-12-05 05:07] LABS: ALANINE AMINOTRANSFERASE 83 U/L (3-33); ALBUMIN/GLOBULIN RATIO 0.9 (1.0-2.7); ANION GAP 26 (5-15); ASPARTATE AMINO TRANSFERASE 55 U/L (5-40); CALCIUM 9.7 mg/dL (8.6-10.2); CARBON DIOXIDE 12 mEQ/L (20-30); CHLORIDE 96 mEQ/L (98-107); CREATININE 0.6 mg/dL (0.5-0.9); GLOMERULAR FILTRATION RATE > 60 mL/min (>60); HEMOLYSIS 40; LIPASE 39 U/L (< 60); POTASSIUM 3.5 mEQ/L (3.4-4.9); SODIUM 134 mEQ/L (135-145); TOTAL PROTEIN 7.7 g/dL (6.6-8.7)
[2016-12-05] MEDS ORDERED: D5 1/2NS w/KCl 20mEq 1,000 ML IV SCH (06:00)
--- NOTE | 2016-12-05 07:00 | Emergency Room Report ---
History of Present Illness General Chief Complaint: Vomiting Source: Patient (MattIvan) Present Illness HPI Patient's 26-year-old female who presented after increased abdominal discomfort as well as vomiting. Patient prior history of hyperemesis gravidarum. Patient had a similar symptoms with her pregnancies in the past. Patient had been noted to be approximately 11 weeks. She is . The patient denied any fever. She reported having some generalized abdominal cramping. She denied any fever. The patient multiple previous visits to the emergency department for similar symptoms. Patient previously been just prescribed antiemetics. The patient stated that she was unable to fill the medications.The patient had not followed up with her ADMISSIONS MANAGER. (Ivan Gutierrez) Allergies: Coded Allergies: No Known Allergies (Unverified , 12/05/16) Patient History Past Medical History: see triage record Last Menstrual Period: n/a Now: Yes - 8 weeks Reviewed Nursing Documentation: PMH: Agreed, PSxH: Agreed (Ivan Gutierrez) Nursing Documentation-PMH Past Medical History: No History, Except For Hx Cardiac Problems: No Hx Cancer: No Hx Gastrointestinal Problems: No Hx Neurological Problems: No (Ivan Gutierrez) Review of Systems All Other Systems: negative except mentioned in HPI (Ivan Gutierrez) Physical Exam Vital Signs Date Time Temp Pulse Resp B/P (MAP) Pulse Ox O2 Delivery O2 Flow Rate FiO2 12/05/16 03:43 97.9 91 22 121/75 100 Room Air Sp02 EP Interpretation: reviewed, normal General Appearance: normal inspection, alert, GCS 15, moderate distress Head: atraumatic ENT: normal ENT inspection, hearing grossly normal, normal voice Neck: normal inspection, full range of motion, supple, no bony tend Respiratory: normal inspection, lungs clear, normal breath sounds, no respiratory distress, no retraction, no wheezing Cardiovascular #1: regular rate, rhythm, no edema Gastrointestinal: normal inspection, normal bowel sounds, soft, no guarding, no hernia Genitourinary: no CVA tenderness Musculoskeletal: normal inspection, back normal, normal range of motion Neurologic: normal inspection, alert, oriented x3, responsive, advertising production manager III-XII nml as tested, speech normal Psychiatric: normal inspection, judgement/insight normal, mood/affect normal Skin: normal inspection, normal color, no rash (Ivan Gutierrez) Medical Decision Making Diagnostic Impression: Primary Impression: Hyperemesis gravidarum Additional Impressions: dehydration High anion gap metabolic acidosis ER Course Patient presented for abdominal pain. Differential diagnoses included ischemic bowel, appendicitis, perforated viscus, abdominal aortic aneurysm, inferior myocardial infarction, viral gastroenteritis. Because of complexity of patient' s case laboratory testing and imaging studies were ordered. The patient was noted to have minimally elevated white blood count. The patient is also noted to have markedly diminished bicarbonate. The patient's anion gap was elevated. Patient started on IV hydration and IV antiemetics for the patient declined Reglan. The patient requested Zofran was given IV Zofran. the patient appears to have some improvement however she'll likely require further IV hydration. Labs Test 12/05/16 04:10 White Blood Count 9.5 K/UL (4.8-10.8) Red Blood Count 4.50 M/UL (4.20-5.40) Hemoglobin 14.1 G/DL (12.0-16.0) Hematocrit 40.2 % (37.0-47.0) Mean Corpuscular Volume 89 FL (80-99) Mean Corpuscular Hemoglobin 31.3 PG (27.0-31.0) Mean Corpuscular Hemoglobin Concent 35.0 G/DL (32.0-36.0) Red Cell Distribution Width 11.2 % (11.6-14.8) Platelet Count 247 K/UL (150-450) Mean Platelet Volume 9.7 FL (6.5-10.1) Neutrophils (%) (Auto) 79.3 % (45.0-75.0) Lymphocytes (%) (Auto) 14.4 % (20.0-45.0) Monocytes (%) (Auto) 5.7 % (1.0-10.0) Eosinophils (%) (Auto) 0.2 % (0.0-3.0) Basophils (%) (Auto) 0.4 % (0.0-2.0) Prothrombin Time 11.8 SEC (9.30-11.50) Prothromb Time International Ratio 1.2 (0.9-1.1) Activated Partial Thromboplast Time 29 SEC (23-33) Sodium Level 134 mEQ/L (135-145) Potassium Level 3.5 mEQ/L (3.4-4.9) Chloride Level 96 mEQ/L (98-107) Carbon Dioxide Level 12 mEQ/L (20-30) Anion Gap 26 (5-15) Blood Urea Nitrogen 7 mg/dL (7-23) Creatinine 0.6 mg/dL (0.5-0.9) Estimat Glomerular Filtration Rate > 60 mL/min (>60) Glucose Level 114 mg/dL (74-106) Calcium Level 9.7 mg/dL (8.6-10.2) Total Bilirubin 0.9 mg/dL (0.0-1.2) Aspartate Amino Transf (AST/SGOT) 55 U/L (5-40) Alanine Aminotransferase (ALT/SGPT) 83 U/L (3-33) Alkaline Phosphatase 90 U/L (35-104) Troponin I < 0.30 ng/mL (<=0.30) Total Protein 7.7 g/dL (6.6-8.7) Albumin 3.7 g/dL (3.5-5.2) Globulin 4.0 g/dL Albumin/Globulin Ratio 0.9 (1.0-2.7) Lipase 39 U/L (< 60) (Ivan Gutierrez) ER Course Patient was signed out to me. 26-year-old female about 12 weeks recent sonogram done in [facility] showing IUP, multiple visits to the emergency room for hyperemesis, presenting with hyperemesis. Patient noted to have high anion gap metabolic acidosis, has received Zofran, has received 1 L of fluids, now currently on second liter. Patient currently still feels nauseous however no active vomiting at this time. Patient will require inpatient admission for dehydration and hyperemesis, and will be transferred to outside hospital. D/W outside OBGYN Dr. Encarnacion who accepted transfer (Coretta Watkins M.D.) EKG Diagnostic Results Rate: normal Rhythm: NSR ST Segments: no acute changes (Ivan Gutierrez) Last Vital Signs Date Time Temp Pulse Resp B/P (MAP) Pulse Ox O2 Delivery O2 Flow Rate FiO2 12/05/16 03:55 97.9 78 20 124/60 100 Room Air Status: unchanged (Ivan Gutierrez) Disposition: XFER SHT-TRM HOSP Condition: Serious Referrals: [facility] (PCP) Ivan Gutierrez Dec 05, 2016 07:00 Coretta Watkins M.D. Dec 05, 2016 08:02
[2016-12-05 07:44] LABS: APPEARANCE,URINE SLIGHTLY CLOUDY; KETONES,URINE 4+ (NEGATIVE); LEUKOCYTE ESTERASE ,URINE 1+ (NEGATIVE); NITRITE,URINE NEGATIVE (NEGATIVE); PH,URINE 6 (4.5-8.0); PROTEIN,URINE 2+ (NEGATIVE); UROBILINOGEN,URINE 4 MG/DL (0.0-1.0)
[2016-12-05 07:56] LABS: BACTERIA,URINE MODERATE /HPF; SQUAMOUS EPITHELIAL CELL,UR FEW /LPF (NONE/OCC)
[2016-12-05] MEDS ORDERED: cefTRIAXone 1 GM in NS 55 ML IVPB ONE (08:00)
[2016-12-05] MEDS ORDERED: NS 55 ML IV ONE (08:21)
[2016-12-05] MEDS ORDERED: Tubing IV Cassette IV ONE (08:21)
--- NOTE | 2016-12-06 19:43 | Cardiology Report ---
APPROVED REPORT EKG Measurement Heart [id number] Normal sinus rhythm Rightward axis Prolonged QT Abnormal ECG
== END 2016-12-05 13:02 | disposition short-term general hospital (02) ==
LOC: EMR 03:40
DX: O21.0 Mild hyperemesis gravidarum (principal); Z3A.11 11 weeks gestation of pregnancy; E86.0 Dehydration; E87.2 Acidosis
CPT/HCPCS: 36415; 80053; 81003; 83690; 84484; 85025; 85610; 85730; 87086; 87181; 93005; 96361; 96365; 96366; 96368; 96375; 99285; J0696; J2405; S0028; J2765

== ENCOUNTER 2016-12-07 21:27 | Emergency (ER) | payer OTHER ==
[~2016-12-07] VITALS: Ht 170.2 cm; Wt 74.8 kg
[2016-12-07 22:15] VITALS: BP 125/72
[2016-12-07 22:42] LABS: BASOPHILS % (AUTO) 0.9 % (0.0-2.0); EOSINOPHILS % (AUTO) 0.2 % (0.0-3.0); LYMPHOCYTES % (AUTO) 22.2 % (20.0-45.0); MEAN CORPUSCULAR HEMOGLOBIN 31.4 PG (27.0-31.0); MEAN CORPUSCULAR HGB CONC 35.3 G/DL (32.0-36.0); MEAN CORPUSCULAR VOLUME 89 FL (80-99); MEAN PLATELET VOLUME 10.2 FL (6.5-10.1); MONOCYTES % (AUTO) 7.1 % (1.0-10.0); NEUTROPHILS % (AUTO) 69.6 % (45.0-75.0); PLATELET COUNT 195 K/UL (150-450); RED BLOOD COUNT 4.07 M/UL (4.20-5.40); RED CELL DISTRIBUTION WIDTH 11.3 % (11.6-14.8); WHITE BLOOD COUNT 7.9 K/UL (4.8-10.8)
[2016-12-07 22:57] LABS: ANION GAP 18 (5-15); CALCIUM 9.4 mg/dL (8.6-10.2); CARBON DIOXIDE 20 mEQ/L (20-30); CHLORIDE 98 mEQ/L (98-107); CREATININE 0.5 mg/dL (0.5-0.9); GLOMERULAR FILTRATION RATE > 60 mL/min (>60); HEMOLYSIS 22; POTASSIUM 2.8 mEQ/L (3.4-4.9); SODIUM 136 mEQ/L (135-145)
[2016-12-07] MEDS ORDERED: Famotidine 20 MG/ 2ML VIAL IVP ONE (23:15)
[2016-12-07 23:25] VITALS: BP 120/63
[2016-12-08 02:00] VITALS: BP 118/65
[2016-12-08 02:18] LABS: APPEARANCE,URINE CLEAR; KETONES,URINE 4+ (NEGATIVE); LEUKOCYTE ESTERASE ,URINE 1+ (NEGATIVE); NITRITE,URINE NEGATIVE (NEGATIVE); PH,URINE 6 (4.5-8.0); PROTEIN,URINE 2+ (NEGATIVE); UROBILINOGEN,URINE 12 MG/DL (0.0-1.0)
--- NOTE | 2016-12-08 02:23 | Emergency Room Report ---
History of Present Illness General Chief Complaint: Vomiting Source: Medical Record Present Illness HPI 26-year-old female , 12 weeks , presenting with nausea and vomiting. Patient states that all her pregnancies she has had hyperemesis gravidarum. Patient states that she's been having nausea and vomiting more than 5 episodes a day, nonbilious nonbloody, for the last 3 days. Patient was recently seen in our emergency room and transferred to outside hospital for hyperemesis gravidarum, patient states she was discharged after one day. Patient now complaining of nausea and vomiting, no abdominal pain, no dysuria, no vaginal bleeding. Patient had a formal pelvic ultrasound performed on November 22 which showed an intrauterine with good heart rate Allergies: Coded Allergies: No Known Allergies (Unverified , 12/05/16) Patient History Past Medical History: see triage record Past Surgical History: none Pertinent Family History: none Last Menstrual Period: 09/07/16 Now: Yes - 13 weeks : 3 Para: 1 Reviewed Nursing Documentation: PMH: Agreed, PSxH: Agreed Nursing Documentation-PMH Hx Cardiac Problems: No Hx Cancer: No Hx Gastrointestinal Problems: No Hx Neurological Problems: No Review of Systems All Other Systems: negative except mentioned in HPI Physical Exam Vital Signs Date Time Temp Pulse Resp B/P (MAP) Pulse Ox O2 Delivery O2 Flow Rate FiO2 12/07/16 21:43 98.4 98 15 124/73 99 Room Air Sp02 EP Interpretation: reviewed, normal General Appearance: alert, GCS 15, non-toxic, other - Tired-appearing young female, mildly dehydrated, conversing appropriately Head: normocephalic, atraumatic Eyes: bilateral eye normal inspection, bilateral eye PERRL, bilateral eye EOMI ENT: normal ENT inspection, normal pharynx, normal voice, moist mucus membranes Neck: normal inspection, full range of motion, supple Respiratory: normal inspection, lungs clear, normal breath sounds, no respiratory distress, no retraction, no wheezing, speaking full sentences, chest symmetrical Cardiovascular #1: normal inspection, regular rate, rhythm, no edema, normal capillary refill Cardiovascular #2: 2+ radial (R), 2+ radial (L) Gastrointestinal: normal inspection, non tender, soft, non-distended, no guarding Musculoskeletal: normal inspection, back normal, normal range of motion, non- tender Neurologic: normal inspection, alert, oriented x3, responsive, motor strength/ tone normal, sensory intact, normal gait, speech normal Psychiatric: normal inspection, judgement/insight normal, memory normal Skin: normal inspection, normal color, no rash, warm/dry, normal turgor Medical Decision Making Diagnostic Impression: Primary Impression: Hyperemesis gravidarum Additional Impression: Hypokalemia ER Course 26-year-old female with nausea and vomiting, hyperemesis gravidarum Plan Routine labs, Zofran, IV fluids ER course Hypokalemia, supplemented IV fluids. Patient only required one dose of Zofran during ER stay. Patient feels much better. There has been no further episodes of vomiting in the ER. Disposition: Patient is to be discharged to home. Patient is instructed to follow up with their obgyn within 2 days. Strict return precautions discussed with patient such as fever, chills, worsening/severe pain, nausea, vomiting, which may indicate severe illness. Patient verbalizes understanding and agrees with plan. Please note that this Emergency Department Report was dictated using [employer] rider technology software, occasionally this can lead to erroneous entry secondary to interpretation by the dictation equipment Laboratory Tests Test 12/07/16 22:25 12/08/16 01:50 12/08/16 04:15 White Blood Count 7.9 K/UL (4.8-10.8) Red Blood Count 4.07 M/UL (4.20-5.40) L Hemoglobin 12.8 G/DL (12.0-16.0) Hematocrit 36.2 % (37.0-47.0) L Mean Corpuscular Volume 89 FL (80-99) Mean Corpuscular Hemoglobin 31.4 PG (27.0-31.0) H Mean Corpuscular Hemoglobin Concent 35.3 G/DL (32.0-36.0) Red Cell Distribution Width 11.3 % (11.6-14.8) L Platelet Count 195 K/UL (150-450) Mean Platelet Volume 10.2 FL (6.5-10.1) H Neutrophils (%) (Auto) 69.6 % (45.0-75.0) Lymphocytes (%) (Auto) 22.2 % (20.0-45.0) Monocytes (%) (Auto) 7.1 % (1.0-10.0) Eosinophils (%) (Auto) 0.2 % (0.0-3.0) Basophils (%) (Auto) 0.9 % (0.0-2.0) Sodium Level 136 mEQ/L (135-145) 136 mEQ/L (135-145) Potassium Level 2.8 mEQ/L (3.4-4.9) L 3.4 mEQ/L (3.4-4.9) Chloride Level 98 mEQ/L (98-107) 102 mEQ/L (98-107) Carbon Dioxide Level 20 mEQ/L (20-30) 18 mEQ/L (20-30) L Anion Gap 18 (5-15) H 16 (5-15) H Blood Urea Nitrogen 7 mg/dL (7-23) 5 mg/dL (7-23) L Creatinine 0.5 mg/dL (0.5-0.9) 0.4 mg/dL (0.5-0.9) L Estimate Glomerular Filtration Rate > 60 mL/min (>60) > 60 mL/min (>60) Glucose Level 94 mg/dL (74-106) 75 mg/dL (74-106) Calcium Level 9.4 mg/dL (8.6-10.2) 8.2 mg/dL (8.6-10.2) L Urine Color Yellow Urine Appearance Clear Urine pH 6 (4.5-8.0) Urine Specific Orient 1.020 (1.005-1.035) Urine Protein 2+ (NEGATIVE) H Urine Glucose (UA) Negative (NEGATIVE) Urine Ketones 4+ (NEGATIVE) H Urine Occult Blood Negative (NEGATIVE) Urine Nitrite Negative (NEGATIVE) Urine Bilirubin 1+ (NEGATIVE) H Urine Ictotest Positive Urine Urobilinogen 12 MG/DL (0.0-1.0) H Urine Leukocyte Esterase 1+ (NEGATIVE) H Urine RBC 0-2 /HPF (0 - 2) Urine WBC 2-4 /HPF (0 - 2) Urine Squamous Epithelial Cells Moderate /LPF (NONE/OCC) H Urine Bacteria Few /HPF (NONE) Rhythm Strip Diag. Results EP Interpretation: yes Rate: 72 Rhythm: NSR, no PVC's, no ectopy Last Vital Signs Date Time Temp Pulse Resp B/P (MAP) Pulse Ox O2 Delivery O2 Flow Rate FiO2 12/08/16 02:00 98.4 67 15 118/65 98 Room Air Disposition: HOME, SELF-CARE Condition: Improved Referrals: [facility] (PCP) Patient Instructions: Eating Plan for Hyperemesis Gravidarum, Hyperemesis Gravidarum Additional Instructions: Please follow up with your primary care doctor within 3 days. Please follow up with [facility] SURREND[facility] CALCULATOR in 2 days. Please take your prescription medication as directed. Please come back to the emergency room if you are having intractable nausea or vomiting, abdominal pain, high fever chills, vaginal bleeding Coretta Watkins M.D. Dec 08, 2016 02:23
[2016-12-08 02:25] LABS: BACTERIA,URINE FEW /HPF; RBC,URINE 0-2 /HPF (0 - 2); SQUAMOUS EPITHELIAL CELL,UR MODERATE /LPF (NONE/OCC)
[2016-12-08 02:26] LABS: ICTOTEST POSITIVE
[2016-12-08 03:55] VITALS: BP 100/56
[2016-12-08 04:33] LABS: ANION GAP 16 (5-15); CALCIUM 8.2 mg/dL (8.6-10.2); CARBON DIOXIDE 18 mEQ/L (20-30); CHLORIDE 102 mEQ/L (98-107); CREATININE 0.4 mg/dL (0.5-0.9); GLOMERULAR FILTRATION RATE > 60 mL/min (>60); HEMOLYSIS 0; POTASSIUM 3.4 mEQ/L (3.4-4.9); SODIUM 136 mEQ/L (135-145)
[2016-12-08 05:00] VITALS: BP 113/57
[2016-12-08 05:05] VITALS: BP 113/57
== END 2016-12-08 05:19 | disposition home or self-care (01) ==
LOC: EMR 21:55
DX: O21.0 Mild hyperemesis gravidarum (principal); Z3A.12 12 weeks gestation of pregnancy; E87.6 Hypokalemia
CPT/HCPCS: 36415; 80048; 81001; 85025; 96361; 96365; 96374; 96375; 99284; J2405; J3480; J7040; S0028; 96360; J8499